=== PATIENT | male | born 1985 | race Caucasian/White ===

== ENCOUNTER 2024-04-03 04:15 | Emergency (ER) | payer OTHER ==
[~2024-04-03] VITALS: Ht 180.3 cm; Wt 69.0 kg
[2024-04-03 06:29] LABS: N. GONORRRHOEAE BY PCR NOT DETECTED (NOT DETECT)
[2024-04-03 07:06] VITALS: BP 119/85
[2024-04-04 10:09] LABS: HIV 1,2 COMBO ANTIGEN/ANTIBODY Negative (Negative)
[2024-04-04 11:33] LABS: HEPATITIS A ANTIBODY, IGM Negative (Negative); HEPATITIS B CORE ANTIBODY, IGM Negative (Negative); HEPATITIS B SURFACE ANTIGEN Negative (Negative); HEPATITIS C AB CIA INTERP Negative (Negative); HEPATITIS C ANTIBODY CIA INDEX 0.12 IV (())
[2024-04-05 08:09] LABS: T.PALLIDUM AB,IGG (FTA-ABS) Non Reactive (Non Reactive)
== END 2024-04-03 07:06 | disposition home or self-care (01) ==
LOC: ED 04:15
PROVIDERS: Family Medicine
DX: Z11.3 Encounter for screening for infections with a predominantly sexual mode of transmission (principal); Z20.2 Contact with and (suspected) exposure to infections with a predominantly sexual mode of transmission
CPT/HCPCS: 36415; 80074; 86780; 99283